=== PATIENT | female | born 1970 | race African-American/Black ===

== ENCOUNTER → 2017-05-21 | Outpatient (CLI) | payer BC, OTHER | LOC: RAD 10:11 | DX: Z12.31 Encounter for screening mammogram for malignant neoplasm of breast (principal) ==

== ENCOUNTER → 2018-06-11 | Outpatient (CLI) | payer BC, OTHER | LOC: RAD 01:17 | DX: Z12.31 Encounter for screening mammogram for malignant neoplasm of breast (principal) ==